=== PATIENT | female | born 1960 | race Caucasian/White ===

== ENCOUNTER 2016-10-08 19:30 | Emergency (ER) | payer BC ==
[~2016-10-08 19:30] MED LIST: ADVIL PM PO; CELEXA40 MG PO; ESTRACE0.5 MG PO; METHOC750B PO; NEUR800 PO; NORCO1 TA2 PO; NORCO1 TAB PO; PCET PO; PRILOSEC40 MG PO; PROAIR HFA INH; V5 PO
== END 2016-10-08 19:35 | disposition home or self-care (01) ==
LOC: ER 19:30
DX: R51 Headache (principal); J44.9 Chronic obstructive pulmonary disease, unspecified; F32.9 Major depressive disorder, single episode, unspecified; G62.9 Polyneuropathy, unspecified; Z88.6 Allergy status to analgesic agent; Z88.8 Allergy status to other drugs, medicaments and biological substances; Z79.899 Other long term (current) drug therapy
CPT/HCPCS: 96372; 99284; J1200; J2550